=== PATIENT | female | born 1985 ===

== ENCOUNTER → 2018-02-23 16:43 | Outpatient (CLI) | payer OTHER, SELFPAY ==
[2018-02-23 17:51] LABS: Add Manual Diff / Slide Review NO; Basophils Percent Auto 0.6 % (0-2); Eosinophils Percent Auto 2.9 % (2-4); Hematocrit 38.9 % (36-46); Hemoglobin 12.8 g/dL (12.0-16.0); Lymphocytes Percent Auto 21.8 % (25-40); Mean Corpuscular HGB Conc 32.8 % (30-36); Mean Corpuscular Hemoglobin 28.8 PG (26-34); Mean Corpuscular Volume 87.9 fL (80-100); Monocytes Percent Auto 4.8 % (3-14); Neutrophils Absolute Auto 8500 /uL (3000-5900); Neutrophils Percent Auto 69.9 % (50-75); Platelet Count 296 X10^3/uL (150-400); Red Blood Cell Count 4.43 X10^6/uL (4.0-5.2); White Blood Cell Count 12.2 X10^3/uL (4.5-11.0)
[2018-02-23 18:34] LABS: Appearance Urine UA CLEAR; Bilirubin Urine UA NEGATIVE (NEGATIVE); Color Urine UA YELLOW; Glucose Urine UA NEGATIVE (Normal); Ketones Urine UA 1+ (NEGATIVE); Leukocyte Esterase Urine UA NEGATIVE (NEGATIVE); Nitrite Urine UA NEGATIVE (Negative); Occult Blood Urine UA 1+ (Negative); Protein Urine UA NEGATIVE (Negative); Specific Gravity Urine UA 1.025 (1.000-1.035); Urobilinogen Urine UA 0.2 E.U./dL (0.2); pH Urine UA 5.5 (4.5-8.0)
[2018-02-23 18:41] LABS: Hepatitis B Surface Antigen NEGATIVE s/c (NEGATIVE)
[2018-02-23 18:57] LABS: HIV 1 and 2 Antibody NEGATIVE (NEGATIVE); Hep C Virus Ab w/Reflex Quant NEGATIVE s/c (NEGATIVE)
[2018-02-25 14:46] LABS: RPR Screen Nonreactive (Nonreactive)
[2018-02-26 10:28] LABS: Varicella IgG Antibody > 4000.00 Index (< 135.00)
[2018-02-26 15:39] LABS: HSV 2 IGG AB < 0.90 index (< 0.90); HSV1IGG < 0.90 index (< 0.90)
== END ==
PROVIDERS: PCP Nurse Practitioner Family; Visit Provider Specialist
DX: Z34.01 Encounter for supervision of normal first pregnancy, first trimester (principal)
CPT/HCPCS: 36415; 80055; 81003; 81241; 86695; 86696; 86703; 86787; 86803; 86850; 86900; 86901; 87086

== ENCOUNTER → 2018-05-13 15:56 | Outpatient (CLI) | payer OTHER, SELFPAY ==
[2018-05-13 21:22] LABS: Urine N gonorrhoeae NOT DETECTED
[2018-05-13 21:48] LABS: Urine Chlamydia NOT DETECTED
== END ==
PROVIDERS: PCP Nurse Practitioner Family; Visit Provider Specialist
DX: Z3A.18 18 weeks gestation of pregnancy (principal)
CPT/HCPCS: 87491; 87591

== ENCOUNTER → 2018-05-13 16:24 | Outpatient (CLI) | payer OTHER, SELFPAY ==
[2018-05-20 15:12] LABS: AFP, Serum 56.4 ng/mL; Calc Gestational Age 18.3; Cigarette Smoker N; Donated Egg NOT GIVEN; Donor Egg Age NOT GIVEN; Estriol, Free 1.52 ng/mL; Inhibin A, Dimeric 230 pg/mL; Maternal Ethnicity CAUCASIAN; Maternal Weight 150 lbs; Number of Fetuses 1; Previous Pregnancy Down Syndro NOT GIVEN; hCG, MoM 1.01; hCG, Serum 23.5 IU/mL
== END ==
PROVIDERS: PCP Nurse Practitioner Family; Visit Provider Specialist
DX: Z3A.18 18 weeks gestation of pregnancy (principal)
CPT/HCPCS: 36415; 82105; 82677; 84702; 86336; 87491; 87591

== ENCOUNTER → 2018-05-24 14:11 | Outpatient (CLI) | payer OTHER, SELFPAY ==
--- NOTE | 2018-05-24 14:12 | DI.US.S_ITS ---
PROCEDURE: US OB >= 14 WEEKS FETUS INDICATIONS: ANATOMY OUTSIDE/PRIOR DATING DATA: Last menstrual period (LMP): 01/03/18. LMP-based estimated date of delivery (DIAMANTE): 10/10/18. First dating scan (date and location): 05/24/18, [facility]. Estimated date of delivery (DIAMANTE) from first dating scan: 10/08/18. TECHNIQUE: Real-time scanning was performed of the fetus, with image documentation and biometric measurements. COMPARISON: [facility], US, US OB <= 14 WEEKS FETUS, 03/11/2018, 15:44. [facility], US, US OB < 14 WEEKS + OB TRANSVAG, 02/16/2018, 16:32. FINDINGS: General: A single living intrauterine gestation is present. Presentation: Vertex. Placenta: Placental position is posterior and fundal, without previa. The lower placental edge measures at least 3.8 cm from the internal cervical os. Amniotic fluid index: 15.5 cm. heart rate: 145 beats per minute. Maternal cervical canal: 3.6 cm long. biometrics: Biparietal diameter: 5.0 cm, for a calculated gestational age of 21 weeks zero days. Head circumference: 18.1 cm, for a calculated gestational age of 20 weeks 4 days. Abdominal circumference: 15.7 cm, for a calculated gestational age of 20 weeks 6 days. Femur length: 3.0 cm, for a calculated gestational age of 19 weeks 3 days. Estimated gestational age from initial scan: not applicable. Composite gestational age from present scan: 20 weeks 3 days Estimated weight and percentile: 341 g, which is at the 57th percentile for gestational age. Measurement variability for biometric dating: +/- 7 days from 14 weeks to 15 weeks 6 days gestation, +/- 10 days from 16 weeks to 21 weeks 6 days gestation, +/- 2 weeks from 22 weeks to 27 weeks 6 days gestation, +/- 3 weeks for 28 weeks gestation or later. weight reference: 4500 g or EFW >90/95% is considered macrosomia or large for gestational age. EFW <10% is small for gestational age. EFW 5% or less is considered intra-uterine growth restriction. Anatomic survey: Neuro: Ventricles are non-dilated at 6 mm. Cisterna magna is normal at 4 mm. Cerebellum is normal in size and morphology. Nuchal skin fold: Normal at 3 mm. Face: Nose, lips, and nasal bone are identified. Spine: No ultrasound evidence for spina bifida. Heart: 4-chambered heart. The ventricular outflow tracts appear present but are not well evaluated on this exam due to motion. Diaphragm: Diaphragm appears intact. Stomach: Left-sided stomach is present. Kidneys: No hydronephrosis. Cord: 3-vessel cord has orthotopic insertion. Bladder: Normal in size. Extremities: All 4 extremities identified. IMPRESSION: 1. Single intrauterine gestation with measured heart rate of 145 beats per minute and composite gestational age of 20 weeks 3 days. Estimated weight is at the 57th percentile for gestational age. 2. Ventricular outflow tracts appear present but are not well evaluated on this exam due to motion. Attention on followup ultrasounds recommended. Dictated by: Jerardo Atkinson M.D. on 05/25/2018 at 15:46 Approved by: Jerardo Atkinson M.D. on 05/25/2018 at 16:01
== END ==
PROVIDERS: PCP Nurse Practitioner Family; Visit Provider Specialist
DX: Z34.02 Encounter for supervision of normal first pregnancy, second trimester (principal); Z3A.20 20 weeks gestation of pregnancy
CPT/HCPCS: 76811

== ENCOUNTER → 2018-06-09 15:04 | Outpatient (CLI) | payer OTHER, SELFPAY ==
--- NOTE | 2018-06-09 15:08 | DI.US.S_ITS ---
PROCEDURE: US OB FOLLOW UP INDICATIONS: Outflow tracts not well seen on anatomy scan OUTSIDE/PRIOR DATING DATA: Last menstrual period (LMP): 01/13/18. LMP-based estimated date of delivery (DIAMANTE): 10/10/18 First dating scan (date and location): 05/24/18, [facility] Estimated date of delivery (DIAMANTE) from first dating scan: 10/08/18 TECHNIQUE: Real-time scanning was performed of the fetus, with image documentation. Endovaginal scanning: None COMPARISON: None. FINDINGS: A single living intrauterine gestation is present. Presentation: Breech. Placenta: Placental position is posterior, without previa. Amniotic fluid index: 10.3 cm, normal range is 5-24 cm. heart rate: 158 beats per minute. Maternal cervical canal: 3.1 cm long. Normal lower limit is 2.5 cm. Outflow tracts are well seen, and are normal in appearance. Normal 4 chamber view as well. IMPRESSION: Normal cardiac anatomy noted. Dictated by: Tunde Fairbanks M.D. on 06/09/2018 at 16:47 Approved by: Tunde Fairbanks M.D. on 06/09/2018 at 16:51
== END ==
PROVIDERS: PCP Nurse Practitioner Family; Visit Provider Specialist
DX: Z34.92 Encounter for supervision of normal pregnancy, unspecified, second trimester (principal); Z3A.20 20 weeks gestation of pregnancy
CPT/HCPCS: 76816

== ENCOUNTER → 2018-06-16 15:17 | Outpatient (CLI) | payer OTHER, SELFPAY ==
--- NOTE | 2018-06-16 15:19 | DI.US.S_ITS ---
ULTRASOUND OF LEFT BREAST AND AXILLA: 06/16/2018 CLINICAL: Palpable left axilla lump. No prior exams were available for comparison. Color flow and real-time ultrasound of the left breast axilla were performed. Owens scale images of the real-time examination were reviewed. Targeted ultrasound of the left axilla at the site of patient's palpable concern demonstrates an indistinct difficult to measure area of ectopic fibroglandular tissue in the left axilla, measuring up to approximately 4.0 cm in greatest diameter. There is expected mild vascularity within the tissue on Doppler imaging. There are benign-appearing lymph nodes in the left axilla with no evidence of left axillary lymphadenopathy. IMPRESSION: BENIGN 1. Patient's palpable concern correlates with an approximately 4.0 cm area of accessory/ectopic fibroglandular tissue in the left axilla. Fibroglandular tissue can grow or change with changes in hormone levels. Patient is reportedly currently . Recommend followup ultrasound in 6 months/after delivery to demonstrate stability/resolution of this finding. The patient is advised to monitor her breasts and axillae and to return sooner for re-evaluation should she feel anything grow or change. 2. No left axillary lymphadenopathy. This exam was interpreted at Station ID: [id number]. Electronically Signed By: Jerardo Atkinson M.D. ecl/:06/17/2018 15:17:28 letter sent: Followup Recommended Ultrasound BI-RADS: 2 Benign
== END ==
PROVIDERS: PCP Nurse Practitioner Family; Visit Provider Specialist
DX: O92.29 Other disorders of breast associated with pregnancy and the puerperium (principal); R22.32 Localized swelling, mass and lump, left upper limb
CPT/HCPCS: 76882

== ENCOUNTER → 2018-07-08 16:12 | Outpatient (CLI) | payer OTHER, SELFPAY ==
[2018-07-08 17:29] LABS: Hematocrit 34.1 % (36-46); Hemoglobin 11.7 g/dL (12.0-16.0)
[2018-07-08 17:42] LABS: GTT (PREG) 1 Hour PP 50gm Dose 143 mg/dL (76-139)
[2018-07-08 17:59] LABS: Free T4, Direct Thyroxine 0.92 ng/dL (0.78-2.19)
[2018-07-08 18:13] LABS: Thyroid Stimulating Hormone 2.06 uIU/mL (0.47-4.68)
== END ==
PROVIDERS: Visit Provider Specialist
DX: Z34.82 Encounter for supervision of other normal pregnancy, second trimester (principal); Z3A.26 26 weeks gestation of pregnancy; E03.9 Hypothyroidism, unspecified
CPT/HCPCS: 36415; 82950; 84439; 84443; 85014; 85018

== ENCOUNTER → 2018-07-27 07:02 | Outpatient (CLI) | payer OTHER, SELFPAY ==
[2018-07-27 08:22] LABS: Glucose Fasting 74 mg/dL (70-100)
[2018-07-27 08:54] LABS: Glucose 1 Hour 160 mg/dL (70-170)
[2018-07-27 10:29] LABS: Glucose Tol Interpretation INTERPRETATION
[2018-07-27 11:33] LABS: Glucose 3 Hour 118 mg/dL (70-115)
[2018-07-27 11:37] LABS: Glucose 2 Hour 115 mg/dL (70-140)
== END ==
PROVIDERS: Visit Provider Specialist
DX: O99.810 Abnormal glucose complicating pregnancy (principal)
CPT/HCPCS: 36415; 82951; 82952

== ENCOUNTER → 2018-09-17 14:49 | Outpatient (CLI) | payer OTHER, SELFPAY ==
[2018-09-18 17:59] LABS: Strep Grp B PCR NEG for Grp B Strep
== END ==
PROVIDERS: PCP Nurse Practitioner Family; Visit Provider Specialist
DX: Z34.03 Encounter for supervision of normal first pregnancy, third trimester (principal); Z3A.36 36 weeks gestation of pregnancy
CPT/HCPCS: 87653

== ENCOUNTER 2018-10-09 11:12 | Observation (INO) | payer OTHER, SELFPAY ==
[2018-10-09] MEDS: MORPHINE 10 MG/ML INJ IM (15:24)
== END 2018-10-09 15:38 | disposition home or self-care (01) ==
PROVIDERS: PCP Nurse Practitioner Family
DX: O47.1 False labor at or after 37 completed weeks of gestation (principal); Z3A.39 39 weeks gestation of pregnancy
CPT/HCPCS: G0378; G0379; J2270

== ENCOUNTER 2018-10-09 18:40 | Inpatient (IN) | payer OTHER, SELFPAY ==
[2018-10-09] MEDS: LACTATED RINGERS 1,000 ML 999 ML IV (19:15)
[2018-10-09 19:41] LABS: Add Manual Diff / Slide Review NO; Basophils Absolute Auto 0 /uL (0-100); Basophils Percent Auto 0.3 % (0-2); Eosinophils Absolute Auto 100 /uL (0-450); Eosinophils Percent Auto 0.7 % (2-4); Hematocrit 33.9 % (36-46); Hemoglobin 10.9 g/dL (12.0-16.0); Lymphocytes Absolute Auto 2000 /uL (1100-4500); Lymphocytes Percent Auto 14.3 % (25-40); Mean Corpuscular HGB Conc 32.2 % (30-36); Mean Corpuscular Hemoglobin 27.7 PG (26-34); Monocytes Absolute Auto 900 /uL (0-900); Monocytes Percent Auto 6.2 % (3-14); Neutrophils Absolute Auto 11200 /uL (1500-7000); Neutrophils Percent Auto 78.5 % (50-75); Platelet Count 214 X10^3/uL (150-400); Red Blood Cell Count 3.94 X10^6/uL (4.0-5.2); Red Cell Distribution Width 14.4 % (11.6-14.8); White Blood Cell Count 14.3 X10^3/uL (4.5-11.0)
[2018-10-09] MEDS: LACTATED RINGERS 1,000 ML 150 ML IV (22:20)
[2018-10-09 23:21] VITALS: BP 106/55
[2018-10-10] VITALS (7 sets, daily range): BP systolic 104–123; BP diastolic 67–76; PULSE 77–93; RESP 9–19; TEMP 36.9–37.5; O2SAT 92–99
[2018-10-10] MEDS: LACTATED RINGERS 1,000 ML 150 ML IV (03:27)
[2018-10-10] MEDS: OXYTOCIN PREMIX 30 UNIT/500 ML PLAST..BAG IV (07:59)
--- NOTE | 2018-10-10 08:47 | PM.OBHP.1 ---
OB HPI Date/Time Date of admission: 10/09/18 Date Patient Seen: 10/10/18 Time Patient Seen: 08:47 History of Present Condition Chief complaint: EVAL OF LABOR : 1 Estimated Date of Delivery: 10/12/18 Estimated Gestational Age (weeks): 39 Narrative: Benita Charles is a 33 year old female one para 0 in for . She was initially seen on 03/11/2018 at nine weeks of and an ultrasound confirmed her DIAMANTE is seven her total weight gain during the has been 39 lb. Her blood pressures remained normotensive her urines remained negative for glucose and protein. The patient was seen on the with prodrome or contractions. Her initial exam showed her to be 1 cm. She walked for approximately 2-3 hours and return in her cervix was 2 cm. She was then sent home after dose of morphine. And returned at 4 cm with rupture of membranes. History of Present care: good care, initiated at week # (9), number of visits (13) and pounds weight gain (39) Dating criteria: LMP confirmed by 1st trimester US Ultrasounds: normal 1st trimester US and normal mid trimester US Obstetrical complications: none Medical complications: none Narrative: The patient's antepartum course has been unremarkable. Aneuploid screening in the 2nd trimester was negative. Her group B strep done September 17 was negative. Preadmission Labs Blood type: B (+) positive -: Antibody screen: negative, Cystic fibrosis screen: unknown, GBS status: negative, HBsAG: negative, HIV: negative, HSV 1: negative, HSV 2: negative and RPR/VDLR: negative -: Chlamydia screen: detected (Negative) and Gonorrhea screen: detected (Negative) -: Rubella: immune and Varicella: immune HCT: 39 HCAB: negative PAP: Normal Quad screen: Normal 1 hr GTT: 143 Evaluation Evaluation Laboratory results: Laboratory Tests 10/09/18 10/09/18 19:23 19:23 WBC 14.3 H RBC 3.94 L Hgb 10.9 L Hct 33.9 L MCV 86.0 MCH 27.7 MCHC 32.2 RDW 14.4 Plt Count 214 Neut % (Auto) 78.5 H Lymph % (Auto) 14.3 L [place] % (Auto) 6.2 Eos % (Auto) 0.7 L Baso % (Auto) 0.3 Neut # (Auto) 47315 H Lymph # (Auto) 2000 [place] # (Auto) 900 Eos # (Auto) 100 Baso # (Auto) 0 Blood Type B Positive Antibody Screen Negative [facility] Social History Smoking Status: Never smoker Social History Smoking Status: Never smoker Meds Home Medications Medication Instructions Recorded Confirmed Type cholecalciferol (vitamin D3) 2,000 2,000 unit PO DAILY 02/23/18 10/09/18 History unit tablet levothyroxine 50 mcg tablet 50 mcg PO DAILY 02/23/18 10/09/18 History vitamin 1 tab PO DAILY 02/23/18 10/09/18 History no.76-iron,carbonyl 29 mg iron-folic acid 1 mg tablet breast pump #1 each 07/29/18 07/29/18 Rx Allergies Allergy/AdvReac Type Severity Reaction Status Date / Time No Known Drug Allergies Allergy Verified 02/23/18 16:52 Review of Systems Review of Systems All systems reviewed & are unremarkable except as noted in HPI and below Exam Const General: cooperative and healthy appearing [facility] Head: normal to inspection Ears: hearing grossly normal bilaterally Nose: external nose normal Face and sinus: normal facial exam Mouth: oral mucosae normal, lip normal, tongue normal and moist mucous membranes Teeth and gingiva: dentition normal Throat: posterior oropharynx normal Eyes General: appearance normal, both eyes and all related structures Neck Neck: normal visual inspection and full ROM Chest Chest: normal inspection of the chest and normal palpation of entire chest wall Breast inspection: normal inspection of the breasts and normal inspection of the axillae Breast Palpation: normal palpation of the breasts and normal palpation of the axillae Resp Effort & Inspection: normal respiratory effort Auscultation: clear to auscultation bilaterally Cardio Palpation: normal PMI Rate: regular rate Rhythm: regular rhythm Heart Sounds: S1 normal and S2 normal GI Inspection: normal to inspection Palpation: soft and no hepatosplenomegaly Percussion: normal to percussion Auscultation: normal bowel sounds External Female Exam: external appearance normal OB/External & Speculum: external exam normal Manual OB Exam: dilated 10, effaced fully and station '+1 Presentation: vertex Estimated Weight (lbs): 8 Amniotic Fluid: clear Back/Spine/Pelvis Thoracic/Lumbar Spine: thoracic and lumbar spine normal to inspection Skin General: no rashes or lesions noted Neuro General: alert, oriented x3, tone normal and moves all extremities Cognition: normal cognition Speech: speech normal Gait: normal gait Motor: muscle tone normal throughout Sensory Exam: no sensory deficits noted Extrem General: normal to inspection and normal exam except as noted Psych Appearance: grossly normal and well kempt Mental Status: mental status grossly normal Speech and Movement: speech and movement normal Objective Labs Result Diagrams: 10/09/18 19:23 Labs: Laboratory Results - last 24 hr 10/09/18 10/09/18 19:23 19:23 WBC 14.3 H RBC 3.94 L Hgb 10.9 L Hct 33.9 L MCV 86.0 MCH 27.7 MCHC 32.2 RDW 14.4 Plt Count 214 Neut % (Auto) 78.5 H Lymph % (Auto) 14.3 L [place] % (Auto) 6.2 Eos % (Auto) 0.7 L Baso % (Auto) 0.3 Neut # (Auto) 26763 H Lymph # (Auto) 2000 [place] # (Auto) 900 Eos # (Auto) 100 Baso # (Auto) 0 Blood Type B Positive Antibody Screen Negative Assessment and Plan Assessment and Plan Assessment and Plan narrative: Term intrauterine 39 and five 7th weeks Active labor though rather indolent Pitocin added Fluid clear Patient now completely Planned pushing
--- NOTE | 2018-10-10 08:58 | P.HPOB_ITS ---
OB HPI Date/Time Date of admission: 10/09/18 Date Patient Seen: 10/10/18 Time Patient Seen: 08:47 History of Present Condition Chief complaint: EVAL OF LABOR : 1 Estimated Date of Delivery: 10/12/18 Estimated Gestational Age (weeks): 39 Narrative: Benita Charles is a 33 year old female one para 0 in for . She was initially seen on 03/11/2018 at nine weeks of and an ultrasound confirmed her DIAMANTE is seven her total weight gain during the has been 39 lb. Her blood pressures remained normotensive her urines remained negative for glucose and protein. The patient was seen on the with prodrome or contractions. Her initial exam showed her to be 1 cm. She walked for approximately 2-3 hours and return in her cervix was 2 cm. She was then sent home after dose of morphine. And returned at 4 cm with rupture of membranes. History of Present care: good care, initiated at week # (9), number of visits (13) and pounds weight gain (39) Dating criteria: LMP confirmed by 1st trimester US Ultrasounds: normal 1st trimester US and normal mid trimester US Obstetrical complications: none Medical complications: none Narrative: The patient's antepartum course has been unremarkable. Aneuploid screening in the 2nd trimester was negative. Her group B strep done September 17 was negative. Preadmission Labs Blood type: B (+) positive -: Antibody screen: negative, Cystic fibrosis screen: unknown, GBS status: negative, HBsAG: negative, HIV: negative, HSV 1: negative, HSV 2: negative and RPR/VDLR: negative -: Chlamydia screen: detected (Negative) and Gonorrhea screen: detected (Negative) -: Rubella: immune and Varicella: immune HCT: 39 HCAB: negative PAP: Normal Quad screen: Normal 1 hr GTT: 143 Evaluation Evaluation Laboratory results: Laboratory Tests 10/09/18 10/09/18 19:23 19:23 WBC 14.3 H RBC 3.94 L Hgb 10.9 L Hct 33.9 L MCV 86.0 MCH 27.7 MCHC 32.2 RDW 14.4 Plt Count 214 Neut % (Auto) 78.5 H Lymph % (Auto) 14.3 L [place] % (Auto) 6.2 Eos % (Auto) 0.7 L Baso % (Auto) 0.3 Neut # (Auto) 17191 H Lymph # (Auto) 2000 [place] # (Auto) 900 Eos # (Auto) 100 Baso # (Auto) 0 Blood Type B Positive Antibody Screen Negative [facility] Social History Smoking Status: Never smoker Social History Smoking Status: Never smoker Meds Home Medications Medication Instructions Recorded Confirmed Type cholecalciferol (vitamin D3) 2,000 2,000 unit PO DAILY 02/23/18 10/09/18 History unit tablet levothyroxine 50 mcg tablet 50 mcg PO DAILY 02/23/18 10/09/18 History vitamin 1 tab PO DAILY 02/23/18 10/09/18 History no.76-iron,carbonyl 29 mg iron-folic acid 1 mg tablet breast pump #1 each 07/29/18 07/29/18 Rx Allergies Allergy/AdvReac Type Severity Reaction Status Date / Time No Known Drug Allergies Allergy Verified 02/23/18 16:52 Review of Systems Review of Systems All systems reviewed & are unremarkable except as noted in HPI and below Exam Const General: cooperative and healthy appearing [facility] Head: normal to inspection Ears: hearing grossly normal bilaterally Nose: external nose normal Face and sinus: normal facial exam Mouth: oral mucosae normal, lip normal, tongue normal and moist mucous membranes Teeth and gingiva: dentition normal Throat: posterior oropharynx normal Eyes General: appearance normal, both eyes and all related structures Neck Neck: normal visual inspection and full ROM Chest Chest: normal inspection of the chest and normal palpation of entire chest wall Breast inspection: normal inspection of the breasts and normal inspection of the axillae Breast Palpation: normal palpation of the breasts and normal palpation of the axillae Resp Effort & Inspection: normal respiratory effort Auscultation: clear to auscultation bilaterally Cardio Palpation: normal PMI Rate: regular rate Rhythm: regular rhythm Heart Sounds: S1 normal and S2 normal GI Inspection: normal to inspection Palpation: soft and no hepatosplenomegaly Percussion: normal to percussion Auscultation: normal bowel sounds External Female Exam: external appearance normal OB/External & Speculum: external exam normal Manual OB Exam: dilated 10, effaced fully and station '+1 Presentation: vertex Estimated Weight (lbs): 8 Amniotic Fluid: clear Back/Spine/Pelvis Thoracic/Lumbar Spine: thoracic and lumbar spine normal to inspection Skin General: no rashes or lesions noted Neuro General: alert, oriented x3, tone normal and moves all extremities Cognition: normal cognition Speech: speech normal Gait: normal gait Motor: muscle tone normal throughout Sensory Exam: no sensory deficits noted Extrem General: normal to inspection and normal exam except as noted Psych Appearance: grossly normal and well kempt Mental Status: mental status grossly normal Speech and Movement: speech and movement normal Objective Labs Result Diagrams: 10/09/18 19:23 Labs: Laboratory Results - last 24 hr 10/09/18 10/09/18 19:23 19:23 WBC 14.3 H RBC 3.94 L Hgb 10.9 L Hct 33.9 L MCV 86.0 MCH 27.7 MCHC 32.2 RDW 14.4 Plt Count 214 Neut % (Auto) 78.5 H Lymph % (Auto) 14.3 L [place] % (Auto) 6.2 Eos % (Auto) 0.7 L Baso % (Auto) 0.3 Neut # (Auto) 93134 H Lymph # (Auto) 2000 [place] # (Auto) 900 Eos # (Auto) 100 Baso # (Auto) 0 Blood Type B Positive Antibody Screen Negative Assessment and Plan Assessment and Plan Assessment and Plan narrative: Term intrauterine 39 and five 7th weeks Active labor though rather indolent Pitocin added Fluid clear Patient now completely Planned pushing
[2018-10-10] MEDS: LACTATED RINGERS 1,000 ML 100 ML IV ×2 (10:12→16:43)
--- NOTE | 2018-10-10 12:59 | PM.OBPNLAB ---
Date/Time Date Patient Seen: 10/10/18 Time Patient Seen: 12:59 Pain Control Pain control: epidural Comments: Not tolerating pain well. Pelvic Exam Dilation (cm): 10 Effacement (%): 100 station: +1 Amniotic membrane status: Ruptured Comments: Patient is pushed for 2-1/2 hours and there is molding and caput per probably no progression of the head Contractions Contractions on admission: irregular Monitor mode: External Pitocin rate (mU/min): 10 Contraction frequency (min): 4 Contraction duration (min): 1 Contraction pattern: Irregular Contraction phase: Resting Contraction intensity: Moderate Status status: Category ll Heart Rate Baseline: 150 Monitor Accelerations: Present Monitor Decelerations: Variable Monitor Variability: Moderate Assessment and Plan Assessment: active labor Plan: Comments: Patient has pushed for 2 hours and 45 minutes. We reinforced her epidural with the idea of lip putting on forceps. Patient is very opposed to an incision down below which I said might be necessary specially for the shoulders and delivering this baby. The epidural was not satisfactory and we contemplated putting a spinal in. We rediscussed the issues of vaginal delivery with forceps versus a section. The patient and her have opted for section.
[2018-10-10] MEDS: LACTATED RINGERS 1,000 ML 42 ML IV (13:51)
[2018-10-10] MEDS: CEFOTETAN 2 GM/50 ML PIGGYBACK IV (14:10)
[2018-10-10] MEDS: LIDOCAINE 1% W/EPI INJ 20 ML INJ (14:25)
--- NOTE | 2018-10-10 14:31 | SUR.OPER ---
Supine on Padded OR bed, head on pillow, safety belt at thigh, arms secured on padded arm boards at <90 degrees abduction. Bump under right buttock. Legs frogged with blankets under knees, gel pad to heels, tape over blanket to lower legs.
--- NOTE | 2018-10-10 15:05 | PM.GYNOP.1 ---
Operative Date/Time/Diagnoses Date of procedure: 10/10/18 Time of procedure: 15:05 Pre-op diagnosis: Term intrauterine Cephalopelvic disproportion failure to progress 2nd stage arrest of labor Maternal exhaustion Pain intolerance Post-op diagnosis: same Procedure: Procedures Operation Date: 10/10/18 13:45 Actual Procedures Side Surgeon p Section Sammy Gutierrez MD Indications: Term intrauterine Cephalopelvic disproportion failure to progress 2nd stage arrest of labor Pain intolerance Maternal exhaustion Surgeon: Sammy Gutierrez Aerodynamics Engineer: Criselda Ruano Anesthesia Type: General, Spinal and Epidural Operative Notes Findings: Normal uterus tubes and ovaries Live-born male Closure Type: primary Specimen(s): none Applied: catheter Estimated blood loss (mL): 500 Blood products transfused: none Procedure in detail: The patient was placed supine upon the operating table. Spinal anesthesia was administered but there was left sided sensation. An epidural had previously failed. The patient received general anesthesia. Sharp knife incision was made and the subcutaneous tissue incised to the fascia. This was widened by blunt finger dissection. The fascia was incised with a sharp knife transversely. The median raphe was incised the midline and this was widened by blunt finger dissection. Bladder blade was then placed. Peritoneum was picked up and incised and white by blunt finger dissection. Bladder blade was set back in place. The peritoneum over the lower uterine segment was picked up and incised laterally. Bladder was taken down without difficulty. The bladder blade replaced. Transverse scoring incision was made across the lower uterine segment. Perforated incision was made centrally. There is light meconium-stained fluid. Baby's head was elevated out of the pelvis and delivered. Baby's was suction. Baby was handed to the nurse and respiratory therapist to pronounced the infant normal in good condition. assisted in blow-by oxygen administration. Cord gases were obtained. Cord gases showed respiratory acidosis but no diminution and bicarbonate indicating lack of a metabolic component. Cord blood was obtained. Placenta was removed manually. All membranes were massaged endometrial cavity. Lateral edges of the incision were grasped with Allis Monessen clamps. Uterine incision was closed in imbricating fashion using a two layer technique with 1. Chromic suture. No bleeding points were seen. Visceral peritoneum was closed with running two 0 chromic suture. Tubes and ovaries appeared to be normal. The parietal peritoneum was closed with running two 0 chromic suture. Area was copiously irrigated. Primary else muscles were reapproximated the midline using 1. Vicryl suture. The fascia was closed with two 1. Vicryl sutures. Area was copiously irrigated. Interrupted number three Dexon was used for the subcutaneous tissue. A running horizontal mattress of 3. Dexon was then used for good skin approximation. The skin was further approximated with Steri-Strips. At the end of the procedure the wound is dry. Urine was clear. And the patient was taken to the recovery room in satisfactory condition Complications: none Post-operative Condition: stable Disposition: PACU Plan for aftercare: Routine aftercare
--- NOTE | 2018-10-10 15:11 | P.OP_ITS ---
Operative Date/Time/Diagnoses Date of procedure: 10/10/18 Time of procedure: 15:05 Pre-op diagnosis: Term intrauterine Cephalopelvic disproportion failure to progress 2nd stage arrest of labor Maternal exhaustion Pain intolerance Post-op diagnosis: same Procedure: Procedures Operation Date: 10/10/18 13:45 Actual Procedures Side Surgeon p Section Sammy Gutierrez MD Indications: Term intrauterine Cephalopelvic disproportion failure to progress 2nd stage arrest of labor Pain intolerance Maternal exhaustion Surgeon: Sammy Gutierrez Floor Sander: Criselda Ruano Anesthesia Type: General, Spinal and Epidural Operative Notes Findings: Normal uterus tubes and ovaries Live-born male Closure Type: primary Specimen(s): none Applied: catheter Estimated blood loss (mL): 500 Blood products transfused: none Procedure in detail: The patient was placed supine upon the operating table. Spinal anesthesia was administered but there was left sided sensation. An epidural had previously failed. The patient received general anesthesia. Sharp knife incision was made and the subcutaneous tissue incised to the fascia. This was widened by blunt finger dissection. The fascia was incised with a sharp knife transversely. The median raphe was incised the midline and this was widened by blunt finger dissection. Bladder blade was then placed. Peritoneum was picked up and incised and white by blunt finger dissection. Bladder blade was set back in place. The peritoneum over the lower uterine segment was picked up and incised laterally. Bladder was taken down without difficulty. The bl adder blade replaced. Transverse scoring incision was made across the lower uterine segment. Perforated incision was made centrally. There is light meconium-stained fluid. Baby's head was elevated out of the pelvis and delivered. Baby's was suction. Baby was handed to the nurse and respiratory therapist to pronounced the normal in good condition. assisted in blow-by oxygen administration. Cord gases were obtained. Cord gases showed respiratory acidosis but no diminution and bicarbonate indicating lack of a metabolic component. Cord blood was obtained. Placenta was removed manually. All membranes were massaged endometrial cavity. Lateral edges of the incision were grasped with Allis Luis clamps. Uterine incision was closed in imbricating fashion using a two layer technique with 1. Chromic suture. No bleeding points were seen. Visceral peritoneum was closed with running two 0 chromic suture. Tubes and ovaries appeared to be normal. The parietal perito neum was closed with running two 0 chromic suture. Area was copiously irrigated. Primary else muscles were reapproximated the midline using 1. Vicryl suture. The fascia was closed with two 1. Vicryl sutures. Area was copiously irrigated. Interrupted number three Dexon was used for the subcutaneous tissue. A running horizontal mattress of 3. Dexon was then used for good skin approximation. The skin was further approximated with Steri-Strips. At the end of the procedure the wound is dry. Urine was clear. And the patient was taken to the recovery room in satisfactory condition Complications: none Post-operative Condition: stable Disposition: PACU Plan for aftercare: Routine aftercare
--- NOTE | 2018-10-10 15:23 | SUR.PHASEI ---
152 VSS, Dr. Gutierrez checked on patient, Pt aroused to voice, expressed pain 4/10 but returned to sleep immediately. Urine clearing in tubing to pale yellow. Resp unlabored, skin warm and dry.
--- NOTE | 2018-10-10 15:26 | SUR.PHASEI ---
Unsure when current IV was initiated, estimated by anesthesia at the beginning of the case.
--- NOTE | 2018-10-10 15:29 | SUR.PHASEI ---
Urine clear yellow
--- NOTE | 2018-10-10 15:58 | SUR.PHASEI ---
1531 late entry Slight motion in LE, sensation at thigh level, weak when pushing feet against hands. Urine remains clear. Sleeping, arouses easily to voice, skin warm and dry, resp even and regular, ice chips given, Dressing remains CDI; scant drainage on parvez-pad. 1541 Report given, including toradol and zofran.Spouse and sleeping baby in the room. SCDs on.
[2018-10-10] MEDS: KETOROLAC 30 MG/ML VIAL IV (20:40)
[2018-10-10] MEDS: BUTORPHANOL 1 MG/ML VIAL 0.5 MG IV (20:41)
[2018-10-11] MEDS: KETOROLAC 30 MG/ML VIAL IV ×2 (02:29→08:47)
[2018-10-11] MEDS: LACTATED RINGERS 1,000 ML 100 ML IV (02:29)
[2018-10-11 05:19] LABS: Hematocrit 29.5 % (36-46); Hemoglobin 9.5 g/dL (12.0-16.0)
[2018-10-11] MEDS: OXYCODONE/ACETAMINOPHEN 5/325 TABLET 2 TAB PO ×4 (08:46→23:09)
[2018-10-11] MEDS: PRENATAL VIT,CALC/IRON/FOLIC 1 TABLET 1 TAB PO (08:47)
[2018-10-11] MEDS: DOCUSATE 250 MG CAPSULE PO ×2 (08:47→23:10)
--- NOTE | 2018-10-11 12:58 | PM.OBPN.1 ---
Subjective - OB Patient comments: incisional pain and tolerating diet baby status: doing well feeding status: exclusively breast feeding Date Patient Seen: 10/11/18 Time Patient Seen: 07:50 Interval history: Patient is postoperative day #1 primary section. She is ready to get out of bed and try ambulating. If she is able to ambulate she will have her Deshpande catheter removed. Her pain is under control. She is tolerating a regular diet. Exam Vital Signs (past 8 hours): Blood pressure 112/70, pulse of 94, temperature 98.7? Oxygen Delivery Method Room Air Oxygen Flow Rate 2 Narrative Exam Narrative: Patient's abdomen is soft, nontender. Uterus is firm, at U, appropriately tender. Dressing is clean, dry, intact. Mild lochia. Extremities with trace edema and nontender. Objective Labs Result Diagrams: 10/11/18 04:46 Labs: Laboratory Results - last 24 hr 10/10/18 10/11/18 14:29 04:46 Hgb 9.5 L Hct 29.5 L Cord ABG pH Cancelled Cord ABG pCO2 Cancelled Cord ABG pO2 Cancelled Cord ABG HCO3 Cancelled Cord ABG Base Excess Cancelled Cord ABG O2 Sat Cancelled Cord VBG pH Cancelled Cord VBG pCO2 Cancelled Cord VBG pO2 Cancelled Cord VBG HCO3 Cancelled Cord VBG Base Excess Cancelled Cord VBG O2 Sat Cancelled Assessment & Plan (1) Delivery by section: Problem details: Patient is doing well 1st day post section Status: Acute Assessment and plan: Patient is doing well 1st day post section. We will begin ambulation. Current Visit: Yes (2) Acute blood loss anemia: Status: Acute Assessment and plan: Will begin iron replacement therapy Current Visit: Yes Plan day: 1 plan OB: routine postop care Time Spent With Patient Total time spent is greater than 50% in coordination of care (as documented) at patient's floor/unit and/or counseling patient: less than 15 minutes
[2018-10-11] MEDS: FERROUS GLUCONATE 324 MG TABLET PO ×2 (14:08→23:10)
[2018-10-11] MEDS: IBUPROFEN 600 MG TABLET PO ×2 (14:08→19:59)
[2018-10-12] MEDS: IBUPROFEN 600 MG TABLET PO ×2 (01:49→08:13)
[2018-10-12] MEDS: OXYCODONE/ACETAMINOPHEN 5/325 TABLET 2 TAB PO ×2 (07:06→11:03)
[2018-10-12] MEDS: DOCUSATE 250 MG CAPSULE PO (08:13)
[2018-10-12] MEDS: FERROUS GLUCONATE 324 MG TABLET PO (08:14)
[2018-10-12] MEDS: PRENATAL VIT,CALC/IRON/FOLIC 1 TABLET 1 TAB PO (08:14)
[2018-10-12 09:04] VITALS: BP 111/69; PULSE 87; RESP 16; TEMP 37.1
--- NOTE | 2018-10-12 10:37 | PM.OBDS.1 ---
Discharge Providers Date of admission: 10/09/18 18:40 Discharge Date: 10/12/18 Primary care physician: Monisha Rico Consults: 10/10/18 15:00 Consult to Storage And Backup Administrator Routine Comment: Discharge provider: Elissa Bunch MD Summary Date Patient Seen: 10/12/18 Time Patient Seen: 10:38 Procedures: Epidural catheter, primary low-transverse section Hospital Course: Patient arrived on Labor and delivery in active labor. She received an epidural catheter for pain control. She had second-stage arrest and opted for section. She did well post . She is ambulatory, passing gas, urinating, pain under control with pain medicine. Mild lochia. Peripartum Data Delivery Method: Section Procedures: Epidural catheter, primary low-transverse section complications: none Sa[place] 1: Gender: Male Disposition of : home Discharge Diagnosis (1) Delivery by section: Status: Acute Problem Details: Patient is doing well 1st day post section (2) Acute blood loss anemia: Status: Acute Status at Discharge Cognitive/behavioral status at discharge: oriented Functional status at discharge: independent ambulation Overall status at discharge: patient is progressing back to baseline Time Spent with Patient Total time spent providing and/or coordinating discharge services: Objective Labs Result Diagrams: 10/11/18 04:46 Exam Vital Signs (past 8 hours): Blood pressure 111/69, pulse of 87, temperature 98.7?- 10/12/18 09:04 Temperature 98.7 F Pulse Rate 87 Respiratory Rate 16 Blood Pressure 111/69 Oxygen Delivery Method Room Air Oxygen Flow Rate 2 Narrative Exam Narrative: Abdomen is soft, nontender. Incision is clean, dry, intact. Mild lochia. Extremities with trace edema and nontender. Blood type is B-positive she is rubella immune Discharge Plan Discharge Plan Patient Disposition: Home Discharge Med Rec/Prescriptions Prescriptions: New oxycodone-acetaminophen 5-325 mg Tablet 2 tab PO Q4HR PRN (Reason: Pain, Severe (7-10)) Qty: 40 RF: 0 ibuprofen 600 mg Tablet 600 mg PO Q6HR PRN (Reason: As Needed For Fever/Mild Pain) Qty: 30 RF: 0 docusate sodium 250 mg Capsule 250 mg PO DAILY Qty: 30 RF: 0 ferrous gluconate 324 mg (38 mg iron) Tablet 324 mg PO BID Qty: 60 RF: 0 Continued levothyroxine 50 mcg tablet 50 mcg PO DAILY RF: 0 cholecalciferol (vitamin D3) 2,000 unit tablet 2,000 unit PO DAILY RF: 0 vit,[id number] [PNV 29-1] 29 mg iron- 1 mg tablet 1 tab PO DAILY RF: 0 breast pump [Pump In Style Advanced] device [id number] .MEDSUPPLY Qty: 1 RF: 0 Follow up/Referrals: Elissa Bunch MD [Physician] - 1 Week Monisha Rico [Primary Care Provider] - Provider Discharge Instructions Diet: Regular Activity: Nothing in vagina for 6 weeks, do not lift over 20 lb Skin/Wound/Dressing Care Report to your healthcare provider any signs of infection, such as:: chills, fever, increased pain and unusual redness Dressing: Leave Steri-Strips on incision can get wet just pat dry Discharge Data Primary Care Provider: Monisha Rico Attending Provider: Sammy Gutierrez Admami Date/Time: 10/09/18 18:40
== END 2018-10-12 15:00 | disposition home or self-care (01) | DRG 787 ==
PROVIDERS: PCP Nurse Practitioner Family
PROC: 10D00Z1 Extraction of Products of Conception, Low, Open Approach (ICD-10-PCS; CPT 59514; principal; 2018-10-10 13:45)
DX: O64.8XX0 Obstructed labor due to other malposition and malpresentation, not applicable or unspecified (principal); D62 Acute posthemorrhagic anemia; Z3A.39 39 weeks gestation of pregnancy; Z37.0 Single live birth
CPT/HCPCS: 01967; 01968; 36415; 59050; 59510; 59514; 59515; 85014; 85018; 85025; 86850; 86900; 86901; G0379; J0330; J0595; J1885; J2274; J2405; J2590; J2704; J3010

== ENCOUNTER → 2018-10-18 16:37 | Outpatient (CLI) | payer OTHER, SELFPAY ==
[2018-10-18 17:32] LABS: Add Manual Diff / Slide Review NO; Basophils Absolute Auto 0 /uL (0-100); Basophils Percent Auto 0.2 % (0-2); Eosinophils Absolute Auto 200 /uL (0-450); Eosinophils Percent Auto 1.8 % (2-4); Hematocrit 31.6 % (36-46); Hemoglobin 10.4 g/dL (12.0-16.0); Lymphocytes Absolute Auto 2300 /uL (1100-4500); Lymphocytes Percent Auto 17.1 % (25-40); Mean Corpuscular HGB Conc 32.8 % (30-36); Mean Corpuscular Hemoglobin 27.9 PG (26-34); Mean Corpuscular Volume 85.3 fL (80-100); Monocytes Absolute Auto 700 /uL (0-900); Monocytes Percent Auto 5.5 % (3-14); Neutrophils Absolute Auto 10200 /uL (1500-7000); Neutrophils Percent Auto 75.4 % (50-75); Platelet Count 529 X10^3/uL (150-400); Red Blood Cell Count 3.71 X10^6/uL (4.0-5.2); Red Cell Distribution Width 14.8 % (11.6-14.8); White Blood Cell Count 13.6 X10^3/uL (4.5-11.0)
== END ==
PROVIDERS: PCP Nurse Practitioner Family; Visit Provider Specialist
DX: R50.9 Fever, unspecified (principal); Z39.2 Encounter for routine postpartum follow-up
CPT/HCPCS: 36415; 85025

== ENCOUNTER → 2018-11-04 14:32 | Outpatient (CLI) | payer OTHER, SELFPAY ==
[2018-11-04 15:30] LABS: Add Manual Diff / Slide Review NO; Basophils Absolute Auto 100 /uL (0-100); Basophils Percent Auto 0.8 % (0-2); Eosinophils Absolute Auto 200 /uL (0-450); Eosinophils Percent Auto 2.9 % (2-4); Hematocrit 37.2 % (36-46); Hemoglobin 12.1 g/dL (12.0-16.0); Lymphocytes Absolute Auto 2400 /uL (1100-4500); Lymphocytes Percent Auto 27.6 % (25-40); Mean Corpuscular HGB Conc 32.6 % (30-36); Mean Corpuscular Hemoglobin 27.3 PG (26-34); Mean Corpuscular Volume 83.9 fL (80-100); Monocytes Absolute Auto 400 /uL (0-900); Monocytes Percent Auto 4.2 % (3-14); Neutrophils Absolute Auto 5600 /uL (1500-7000); Neutrophils Percent Auto 64.5 % (50-75); Platelet Count 276 X10^3/uL (150-400); Red Blood Cell Count 4.44 X10^6/uL (4.0-5.2); Red Cell Distribution Width 15.7 % (11.6-14.8); White Blood Cell Count 8.7 X10^3/uL (4.5-11.0)
[2018-11-04 15:44] LABS: BUN Creatinine Ratio 18.6 (6-22); Blood Urea Nitrogen 13 mg/dL (7-17); Estimated Glomerular Filt Rate > 60.0 mL/min (>60)
== END ==
PROVIDERS: PCP Nurse Practitioner Family; Visit Provider Specialist
DX: R30.0 Dysuria (principal); R10.31 Right lower quadrant pain
CPT/HCPCS: 36415; 82565; 84520; 85025; 87077; 87086

== ENCOUNTER → 2018-11-05 08:44 | Outpatient (CLI) | payer OTHER, SELFPAY ==
--- NOTE | 2018-11-05 08:46 | DI.CT.S_ITS ---
PROCEDURE: CT ABDOMEN PELVIS W CON INDICATIONS: RLQ Pain post C-Sect TECHNIQUE: After the administration of intravenous contrast, 5 mm thick sections acquired from the diaphragm to the symphysis. 5 mm coronal and sagittal reformats were acquired. For radiation dose reduction, the following was used: automated exposure control, adjustment of mA and/or kV according to patient size. COMPARISON: None. FINDINGS: Image quality: Excellent. ABDOMEN: Lung bases: Lung bases are clear. Heart size is normal. Solid organs: Liver is normal in size and enhancement. There is a small gallstone in the neck of the gallbladder. Biliary system is non dilated. Pancreas enhances normally. Spleen is normal in size and enhancement. No adrenal nodules. Kidneys demonstrate normal size and enhancement, without hydronephrosis. Peritoneum and bowel: The appendix is not identified. Moderate right colonic fecal debris. Bowel loops demonstrate normal wall thickness and caliber. No free fluid or air. No abscess cavity. Nodes and vessels: No retroperitoneal or mesenteric adenopathy by size criteria. Aorta and inferior vena cava are normal in size. Miscellaneous: No ventral hernias. PELVIS: Genitourinary: Bladder wall thickness is normal. Miscellaneous: No inguinal hernias or adenopathy. Cystic right adnexa. Expected postsurgical findings: Status post recent section. Bones: No suspicious bony lesions. No vertebral body compression fractures. IMPRESSION: 1. Small gallstone in the neck of the gallbladder. 2. Expected surgical changes, status post recent section. 3. A normal appendix is not identified. 4. Moderate fecal debris in the right colon. 5. Cystic right adnexa Dictated by: Tunde Fairbanks M.D. on 11/05/2018 at 9:04 Approved by: Tunde Fairbanks M.D. on 11/05/2018 at 9:10
== END ==
PROVIDERS: PCP Nurse Practitioner Family; Visit Provider Specialist
DX: R10.31 Right lower quadrant pain (principal); K80.80 Other cholelithiasis without obstruction; N94.89 Other specified conditions associated with female genital organs and menstrual cycle; Z98.890 Other specified postprocedural states; Z98.891 History of uterine scar from previous surgery
CPT/HCPCS: 74177

== ENCOUNTER → 2019-03-16 07:54 | Outpatient (CLI) | payer OTHER, SELFPAY ==
--- NOTE | 2019-03-16 07:56 | DI.US.S_ITS ---
ULTRASOUND OF LEFT BREAST AND AXILLA: 03/16/2019 CLINICAL: 6 month follow-up of the left axilla. Comparison is made to exam dated: 06/16/2018 [facility]. Real-time ultrasound of the left breast axilla was performed. Owens scale images of the real-time examination were reviewed. Interval decrease in conspicuity and size of previously described fibroglandular tissue in the left axilla. Previously seen left axillary lymph node is no longer visualized. No suspicious mass lesions. IMPRESSION: PROBABLY BENIGN Decreased size and conspicuity of heterogeneous tissue in the left axilla most likely representing expected post changes of axillary fibroglandular tissue. Previously seen axillary lymph node is also no longer visualized. Findings are probably benign. Recommend clinical follow up for recurrent or persistent symptoms and a follow-up left ultrasound in 6 months is also recommended to demonstrate stability. This exam was interpreted at Station ID: [id number]. Electronically Signed By: Julio Cesar Fox M.D. at/:03/16/2019 08:37:08 letter sent: Followup Recommended Ultrasound BI-RADS: 3 Probably benign
== END ==
PROVIDERS: PCP Nurse Practitioner Family; Visit Provider Specialist
DX: R22.32 Localized swelling, mass and lump, left upper limb (principal)
CPT/HCPCS: 76882

== ENCOUNTER → 2020-10-17 11:09 | Outpatient (CLI) | payer OTHER, SELFPAY ==
[2020-10-17 11:59] LABS: Add Manual Diff / Slide Review NO; Basophils Absolute Auto 0 /uL (0-100); Basophils Percent Auto 0.4 % (0-2); Eosinophils Absolute Auto 200 /uL (0-450); Eosinophils Percent Auto 2.4 % (2-4); Hematocrit 39.2 % (36-46); Hemoglobin 13.1 g/dL (12.0-16.0); Lymphocytes Absolute Auto 1900 /uL (1100-4500); Lymphocytes Percent Auto 20.6 % (25-40); Mean Corpuscular HGB Conc 33.6 % (30-36); Mean Corpuscular Hemoglobin 29.7 PG (26-34); Mean Corpuscular Volume 88.6 fL (80-100); Monocytes Absolute Auto 500 /uL (0-900); Monocytes Percent Auto 5.5 % (3-14); Neutrophils Absolute Auto 6400 /uL (1500-7000); Neutrophils Percent Auto 71.1 % (50-75); Platelet Count 249 X10^3/uL (150-400); Red Blood Cell Count 4.42 X10^6/uL (4.0-5.2); Red Cell Distribution Width 13.1 % (11.6-14.8); White Blood Cell Count 9.1 X10^3/uL (4.5-11.0)
[2020-10-17 12:03] LABS: Appearance Urine UA SL CLOUDY; Bilirubin Urine UA NEGATIVE (NEGATIVE); Color Urine UA YELLOW; Glucose Urine UA NEGATIVE (Negative); Ketones Urine UA NEGATIVE (NEGATIVE); Leukocyte Esterase Urine UA 1+ (NEGATIVE); Nitrite Urine UA NEGATIVE (Negative); Occult Blood Urine UA TRACE-INTACT (Negative); Protein Urine UA NEGATIVE (Negative); Urobilinogen Urine UA 0.2 E.U./dL (0.2)
[2020-10-17 12:08] LABS: pH Urine UA 6.5 (4.5-8.0)
[2020-10-17 12:10] LABS: Bacteria Urine Many (>30); Culture Indicated Urine Cult Not Indicated; RBC Urine 1-5/HPF (0-5/HPF); Squamous Epithelial Cell Urine >30 /HPF (0-5/HPF); WBC Urine 5-10/HPF (0-5/HPF)
[2020-10-17 19:34] LABS: HIV 1 & 2 Ab/Ag 4th Gen Combo NEGATIVE (NEGATIVE); Hep C Virus Ab w/Reflex Quant NEGATIVE s/c (NEGATIVE); Hepatitis B Surface Antigen NEGATIVE s/c (NEGATIVE); Rubella Antibody IgG 85.7 IU/mL (>15)
[2020-10-18 07:50] LABS: Varicella IgG Antibody 2218 index (Immune >165)
[2020-10-18 08:10] LABS: RPR Screen Non Reactive (Non Reactive)
== END ==
PROVIDERS: PCP Nurse Practitioner Family; Referring Provider Specialist; Visit Provider Specialist
DX: Z34.81 Encounter for supervision of other normal pregnancy, first trimester (principal); Z34.90 Encounter for supervision of normal pregnancy, unspecified, unspecified trimester
CPT/HCPCS: 36415; 80055; 81003; 81015; 84439; 84443; 86787; 86803; 86850; 86900; 86901; 87086; 87389

== ENCOUNTER → 2020-12-20 16:35 | Outpatient (CLI) | payer OTHER, SELFPAY ==
[2020-12-22 18:17] LABS: AFP, Serum 48.7 ng/mL (.); Estriol, Free 2.07 ng/mL (.); Inhibin A, Dimeric 231.67 pg/mL (.); Inhibin A, MoM 1.43 (.); Maternal Ethnicity Other (.); Maternal Weight 142 lbs (.); Number of Fetuses No (.); OSBR Risk 1 IN 10000 (.); Results Report (.); Test Results *Screen Negative* (.); hCG, MoM 0.93 (.); hCG, Serum 27717 mIU/mL (.)
== END ==
PROVIDERS: PCP Nurse Practitioner Family; Referring Provider Specialist; Visit Provider Specialist
DX: Z34.82 Encounter for supervision of other normal pregnancy, second trimester (principal); Z3A.17 17 weeks gestation of pregnancy
CPT/HCPCS: 36415; 82105; 82677; 84702; 86336

== ENCOUNTER → 2021-01-07 15:53 | Outpatient (CLI) | payer OTHER, SELFPAY ==
--- NOTE | 2021-01-07 15:54 | DI.US.S_ITS ---
PROCEDURE: US OB >= 14 WEEKS FETUS INDICATIONS: 20 WEEK ANATOMY SCAN OUTSIDE/PRIOR DATING DATA: Last menstrual period (LMP): August 17, 2020 . LMP-based estimated date of delivery (DIAMANTE): May 24, 2021 . First dating scan (date and location): [place]. Estimated date of delivery (DIAMANTE) from first dating scan: May 24, 2021 . TECHNIQUE: Real-time scanning was performed of the fetus, with image documentation and biometric measurements. COMPARISON: [facility], , OB >= 14 WEEKS FETUS, 07/29/2018, 15:43. FINDINGS: General: A single living intrauterine gestation is present. Presentation: Variable. Placenta: Placental position is right anterior, without previa. Amniotic fluid index: 18.2 cm, normal range is 5-24 cm. heart rate: 157 beats per minute. Maternal cervical canal: 3.6 cm long. Normal lower limit is 2.5 cm. biometrics: Biparietal diameter: 5.1 cm Head circumference: 18.3 cm Abdominal circumference: 16.4 cm Femur length: 3.4 cm Estimated gestational age from initial scan: not applicable. Composite gestational age from present scan: 21 weeks, 1 day Estimated weight and percentile: 397 g +/-59 g Anatomic survey: Neuro: Ventricles are non-dilated at less than 10 mm. Cisterna magna is normal at 3-11 mm. Cerebellum is normal in size and morphology. Nuchal skin fold: Normal at less than 6 mm between 14-21 weeks gestational age. Face: Nose and lips, facial profile are normal. Spine: No evidence for spina bifida. Heart: 4-chambered heart is present, with normal ventricular outflow tracts. Diaphragm: Diaphragm is intact. Stomach: Left-sided stomach is present. Kidneys: No hydronephrosis. Normal is less than 5 mm in 2nd trimester, less than 7 mm in 3rd trimester. Cord: 3-vessel cord has orthotopic insertion. Bladder: Normal in size. Extremities: All 4 extremities identified. IMPRESSION: Single intrauterine gestation as detailed above. Dictated by: Agustin Serrano M.D. on 01/08/2021 at 8:07 Approved by: Agustin Serrano M.D. on 01/08/2021 at 8:12
== END ==
PROVIDERS: PCP Nurse Practitioner Family; Referring Provider Specialist; Visit Provider Specialist
DX: Z34.82 Encounter for supervision of other normal pregnancy, second trimester (principal); Z3A.21 21 weeks gestation of pregnancy
CPT/HCPCS: 76811

== ENCOUNTER → 2021-02-14 15:24 | Outpatient (CLI) | payer OTHER, SELFPAY ==
[2021-02-14 17:38] LABS: Hematocrit 34.9 % (36-46); Hemoglobin 12.1 g/dL (12.0-16.0)
[2021-02-14 18:12] LABS: GTT (PREG) 1 Hour PP 50gm Dose 158 mg/dL (76-139)
== END ==
PROVIDERS: PCP Nurse Practitioner Family; Referring Provider Specialist; Visit Provider Specialist
DX: Z34.82 Encounter for supervision of other normal pregnancy, second trimester (principal); Z3A.26 26 weeks gestation of pregnancy
CPT/HCPCS: 36415; 82950; 85014; 85018

== ENCOUNTER → 2021-02-19 08:50 | Outpatient (CLI) | payer OTHER, SELFPAY ==
[2021-02-19 09:46] LABS: Glucose Fasting Gestational 79 mg/dL (76-95)
[2021-02-19 11:04] LABS: Glucose 1 Hour Gest 125 mg/dL (76-180)
[2021-02-19 12:05] LABS: Glucose Tol Interp,Gestational INTERPRETATION
[2021-02-19 12:31] LABS: Glucose 2 Hour Gest 88 mg/dL (76-155)
[2021-02-19 12:57] LABS: Glucose 3 Hour Gest 88 mg/dL (76-140)
== END ==
PROVIDERS: PCP Nurse Practitioner Family; Referring Provider Specialist; Visit Provider Specialist
DX: O99.810 Abnormal glucose complicating pregnancy (principal)
CPT/HCPCS: 36415; 82951; 82952